=== PATIENT | female | born 1990 | race American Indian/Alaskan Native ===

== ENCOUNTER 2018-08-29 00:32 | Emergency (ER) | payer OTHER ==
[2018-08-29 00:48] VITALS: BP 124/79
[2018-08-29 01:28] LABS: Basophils % (Auto) 0.3 % (0.0-1.8); Eosinophils % (Auto) 0.6 % (0.0-4.3); Hematocrit 38.1 % (30.3-42.9); Hemoglobin 12.8 gm/dl (10.1-14.3); Lymphocytes # (Auto) 1.4 K/mm3 (1.2-5.4); Lymphocytes % (Auto) 19.4 % (13.4-35.0); Mean Corpuscular HGB Conc 34 % (30-34); Mean Corpuscular Volume 89 fl (79-97); Monocytes # (Auto) 0.4 K/mm3 (0.0-0.8); Monocytes % (Auto) 6.1 % (0.0-7.3); Platelet Count 271 K/mm3 (140-440); Red Blood Count 4.27 M/mm3 (3.65-5.03); Red Cell Distribution Width 13.9 % (13.2-15.2)
[2018-08-29 01:50] LABS: Alanine Aminotransferase 15 units/L (7-56); Albumin 4.3 g/dL (3.9-5); BUN/Creatinine Ratio 14; Blood Urea Nitrogen 13 mg/dL (7-17); Calcium 9.2 mg/dL (8.4-10.2); Hemolysis Index 3
[2018-08-29 02:42] LABS: Bacteria,Urine 1+ /HPF (Negative); Bilirubin,Urine NEG (Negative); Blood,Urine NEG (Negative); Color,Urine Yellow (Yellow); Mucus,Urine 2+ /HPF; Urobilinogen,Urine < 2.0 mg/dL (<2.0)
[2018-08-29] MEDS ORDERED: PEPCID PO ONE (04:31)
[2018-08-29] MEDS ORDERED: ZOFRAN ODT PO ONE (04:31)
[2018-08-29] MEDS ORDERED: BENTYL IM ONE (04:32)
[2018-08-29] MEDS ORDERED: TORADOL IM ONE (04:33)
--- NOTE | 2018-08-29 05:41 | Emergency Department Report ---
ED General Adult HPI - General Chief complaint: Headache Stated complaint: EMESIS/HEADACHE Time Seen by Provider: 08/29/18 04:45 Source: patient Mode of arrival: Ambulatory Limitations: No Limitations - History of Present Illness Initial comments: Patient is a nulliparous 28-year-old -[place] female with no past medical history who presents to the ED with complaint of acute onset persistent intermittent nausea and vomiting and diarrhea with lower abdominal pain for the last 12 hours. Patient also complains of severe diffuse headache. Patient states that she ate some chicken from a restaurant and started having the symptoms symptoms 6-7 hours later. Patient denies fever, chills, and dizziness, chest pain, shortness of breath, change in vision, dysuria, urinary frequency and urgency, vaginal bleeding or vaginal discharge. MD Complaint: nausea, vomiting, diarrhea, headache, abdominal pain -: Sudden, hour(s) (12) Location: head, abdomen Radiation: non-radiation Severity scale (0 -10): 4 Quality: aching, sharp Consistency: intermittent Improves with: none Worsens with: none Associated Symptoms: denies other symptoms, loss of appetite, malaise, nausea/vomiting. denies: confusion, chest pain, cough, diaphoresis, fever/chills, headaches, shortness of breath, syncope, weakness Treatments Prior to Arrival: none - Related Data Previous Rx's Medication Instructions Recorded Last Taken Type Butalb/Acetamin/Caff 50-325-40 1 tab PO Q6HR PRN #12 tab 08/29/18 Unknown Rx [Fioricet 50-325-40] Diphenoxylate/Atropine [Lomotil] 1 - 2 tab PO Q4H PRN #15 tablet 08/29/18 Unknown Rx Ketorolac [Toradol] 10 mg PO Q8H PRN #20 tablet 08/29/18 Unknown Rx Ondansetron [Zofran Odt] 4 mg PO Q6HR PRN #20 tab.rapdis 08/29/18 Unknown Rx Ranitidine HCl [Zantac] 150 mg PO Q12H #24 tablet 08/29/18 Unknown Rx Allergies Allergy/AdvReac Type Severity Reaction Status Date / Time No Known Allergies Allergy Verified 08/29/18 00:37 ED Review of Systems ROS: Stated complaint: EMESIS/HEADACHE Other details as noted in HPI Comment: All other systems reviewed and negative Constitutional: no symptoms reported, see HPI, malaise. denies: chills, diaphoresis, fever, weakness Eyes: as per HPI. denies: eye pain, eye discharge, vision change ENT: as per HPI. denies: ear pain, throat pain, dental pain, hearing loss, epistaxis Respiratory: no symptoms reported, see HPI. denies: shortness of breath, SOB with exertion, SOB at rest Cardiovascular: as per HPI. denies: chest pain, palpitations, dyspnea on exertion, edema, syncope, paroxysmal nocturnal dyspnea Endocrine: no symptoms reported, see HPI. denies: excessive sweating, flushing, intolerance to cold, increased hunger, increased urine, unexplained weight gain Gastrointestinal: as per HPI, abdominal pain, nausea, vomiting, diarrhea. denies: constipation, hematemesis, hematochezia Genitourinary: as per HPI. denies: urgency, dysuria, frequency, hematuria, discharge, abnormal menses, dyspareunia Musculoskeletal: as per HPI. denies: back pain, joint swelling, arthralgia Skin: as per HPI. denies: rash, lesions, change in color, change in hair/nails Neurological: as per HPI, headache. denies: weakness, numbness, paresthesias, confusion, abnormal gait, vertigo Psychiatric: as per HPI. denies: auditory hallucinations, visual hallucinations, homicidal thoughts Hematological/Lymphatic: as per HPI ED Past Medical Hx - Past Medical History Previous Medical History?: Yes Additional medical history: DJD - Surgical History Past Surgical History?: No - Social History Smoking Status: Never Smoker Substance Use Type: None - Medications Home Medications: Home Medications Medication Instructions Recorded Confirmed Last Taken Type Butalb/Acetamin/Caff 50-325-40 1 tab PO Q6HR PRN #12 tab 08/29/18 Unknown Rx [Fioricet 50-325-40] Diphenoxylate/Atropine [Lomotil] 1 - 2 tab PO Q4H PRN #15 tablet 08/29/18 Unknown Rx Ketorolac [Toradol] 10 mg PO Q8H PRN #20 tablet 08/29/18 Unknown Rx Ondansetron [Zofran Odt] 4 mg PO Q6HR PRN #20 tab.rapdis 08/29/18 Unknown Rx Ranitidine HCl [Zantac] 150 mg PO Q12H #24 tablet 08/29/18 Unknown Rx ED Physical Exam - General Limitations: No Limitations General appearance: alert, in no apparent distress - Head Head exam: Present: atraumatic, normocephalic, normal inspection - Eye Eye exam: Present: normal appearance, PERRL, EOMI. Absent: scleral icterus, conjunctival injection, periorbital swelling, periorbital tenderness - ENT ENT exam: Present: normal exam, normal orophraynx, mucous membranes moist, TM's normal bilaterally, normal external ear exam - Neck Neck exam: Present: normal inspection, full ROM. Absent: tenderness, meningismus, lymphadenopathy - Respiratory Respiratory exam: Present: normal lung sounds bilaterally. Absent: respiratory distress, wheezes, rales, stridor, chest wall tenderness, accessory muscle use, decreased breath sounds, prolonged expiratory - Cardiovascular Cardiovascular Exam: Present: regular rate, normal rhythm, normal heart sounds - GI/Abdominal GI/Abdominal exam: Present: soft, normal bowel sounds. Absent: tenderness, guarding, rebound, rigid, hyperactive bowel sounds, hypoactive bowel sounds - Rectal Rectal exam: Present: deferred - Extremities Exam Extremities exam: Present: normal inspection, full ROM, normal capillary refill - Back Exam Back exam: Present: normal inspection. Absent: full ROM, tenderness, CVA tenderness (L) - Neurological Exam Neurological exam: Present: alert, oriented X3, CN II-XII intact, normal gait, reflexes normal - Psychiatric Psychiatric exam: Present: normal affect. Absent: normal mood, depressed, anxious, flat affect, manic - Skin Skin exam: Present: warm, dry, intact ED Course Vital Signs 08/29/18 00:40 Temperature 98.4 F Pulse Rate 90 Respiratory 16 Rate Blood Pressure 124/79 O2 Sat by Pulse 99 Oximetry - Reevaluation(s) Reevaluation #1: 08/29/18 05:47 Patient is alert and oriented 3 and is not in distress with normal vital signs. Lab test results were reviewed and are unremarkable including urinalysis. Patient was treated for nausea and vomiting and diarrhea as well as headache and pain. On reevaluation, patient's headache has resolved as well as nausea and vomiting. Patient states that she is feeling much better. Patient discharged home on medications and advised to follow-up with her primary care physician in 3-5 days for reevaluation. Meanwhile the patient was advised to maintain a les ar liquid diet for 12-24 hours. Patient was advised to return to the ED immediately if symptoms get worse. ED Medical Decision Making - Lab Data Result diagrams: 08/29/18 00:59 08/29/18 00:59 - Medical Decision Making Patient is alert and oriented 3 and is not in distress with normal vital signs. Lab test results were reviewed and are unremarkable including urinalysis. Patient was treated for nausea and vomiting and diarrhea as well as headache and pain. On reevaluation, patient's headache has resolved as well as nausea and vomiting. Patient states that she is feeling much better. Patient discharged home on medications and advised to follow-up with her primary care physician in 3-5 days for reevaluation. Meanwhile the patient was advised to maintain a clear liquid diet for 12-24 hours. Patient was advised to return to the ED immediately if symptoms get worse - Differential Diagnosis viral gastroenteritis, vomiting and diarrhea, tension headache Critical care attestation.: If time is entered above; I have spent that time in minutes in the direct care of this critically ill patient, excluding procedure time. ED Disposition Clinical Impression: Nausea, vomiting and diarrhea, Viral gastroenteritis Abdominal pain Qualifiers: Abdominal location: lower abdomen, unspecified Qualified Code(s): R10.30 - Lower abdominal pain, unspecified Tension type headache Qualifiers: Headache chronicity pattern: acute headache Intractability: not intractable Qualified Code(s): G44.209 - Tension-type headache, unspecified, not intractable Disposition: DC-01 TO HOME OR SELFCARE Is pt being admited?: No Does the pt Need Aspirin: No Condition: Stable Instructions: Acute Nausea and Vomiting (ED), Abdominal Pain (ED), Gastroenteritis (ED) Additional Instructions: Maintain a clear liquid diet for the next 12-24 hours, take medications and drink plenty of fluids. Return to the ED immediately if symptoms get worse, otherwise follow-up with her primary care physician in 5-7 days for reevaluation. Prescriptions: Butalb/Acetamin/Caff 50-325-40 [Fioricet 50-325-40] 1 tab PO Q6HR PRN #12 tab PRN Reason: Headache Diphenoxylate/Atropine [Lomotil] 1 - 2 tab PO Q4H PRN #15 tablet PRN Reason: Diarrhea Ketorolac [Toradol] 10 mg PO Q8H PRN #20 tablet PRN Reason: Pain Ranitidine HCl [Zantac] 150 mg PO Q12H #24 tablet Ondansetron [Zofran Odt] 4 mg PO Q6HR PRN #20 tab.rapdis PRN Reason: Nausea Referrals: [facility] [Primary Care Provider] - 3-5 Days Time of Disposition: 05:41 Print Language: MEXICAN
== END 2018-08-29 06:00 | disposition home or self-care (01) ==
LOC: ED 00:32
DX: A08.4 Viral intestinal infection, unspecified (principal); G44.209 Tension-type headache, unspecified, not intractable
CPT/HCPCS: 36415; 80053; 81001; 83690; 84703; 85025; 96372; 99283; J1885; Q0162